=== PATIENT | male | born 1960 | race Two or more races ===

== ENCOUNTER 2017-04-25 08:23 | Observation (INO) | payer OTHER ==
[~2017-04-25] VITALS: Ht 180.3 cm; Wt 93.0 kg
[~2017-04-25 08:23] MED LIST: BETIMOL5 M1; DUREZOL5 ML; GLIMEPIRIDE2 MG PO; METFORMIN HCL500 MG PO; SIMVASTATIN40 MG PO
[2017-04-25] MEDS ORDERED: LEVOTHYROXINE100 MC1 PO (08:36)
[2017-04-25] MEDS ORDERED: SODIUM CHLORIDE 0.9% 1000ML 1,000 ML IV STA (08:38)
[2017-04-25] MEDS ORDERED: PANTOPRAZOLE 40 MG 10ML VIAL IV STA (08:38)
[2017-04-25 09:28] LABS: INR 0.89; PARTIAL THROMBOPLASTIN TIME 25.2 seconds (23.8-35.5); PROTHROMBIN TIME 12.5 seconds (11.9-14.5)
[2017-04-25 09:38] LABS: ALBUMIN 3.8 g/dL (3.5-5.0); ANION GAP 10.8 mmol/L (8-16); BASOPHILS % 0.4 % (0.0-1.0); CALCIUM 9.4 mg/dL (8.4-10.2); CREATININE, SERUM 1.25 mg/dL (0.72-1.25); EOSINOPHILS # (AUTO) 0.2 (0.0-0.4); EOSINOPHILS % 2.4 % (0.0-6.0); HEMATOCRIT 37.8 % (38.2-49.6); HEMOGLOBIN 12.8 g/dL (14.0-18.0); LYMPHOCYTES # (AUTO) 1.8 (1.0-3.2); LYMPHOCYTES % 24.4 % (18.0-39.1); MEAN CORPUSCULAR HGB CONC 33.9 g/dL (31-35); MEAN CORPUSCULAR VOLUME 85.5 fL (81-99); MONOCYTES # (AUTO) 0.5 (0.2-0.8); NEUTROPHILS # (AUTO) 4.7 (2.1-6.9); NEUTROPHILS % 65.4 % (38.7-80.0); PLATELET COUNT 265 x10e3/uL (140-360); POTASSIUM 3.8 mmol/L (3.5-5.1); RED BLOOD COUNT 4.42 x10e6/uL (4.3-5.7); RED CELL DISTRIBUTION WIDTH 13.8 % (11.7-14.4)
[2017-04-25] MEDS: SODIUM CHLORIDE FLUSH 10 ML SYR INJ PRN ×2 (10:30→20:13)
[2017-04-25] MEDS: SODIUM CHLORIDE 0.9% 1000ML 1,000 ML IV SCH ×3 (12:02→20:12)
[2017-04-25 14:49] LABS: BASOPHILS % 0.4 % (0.0-1.0); EOSINOPHILS # (AUTO) 0.2 (0.0-0.4); HEMATOCRIT 35.7 % (38.2-49.6); LYMPHOCYTES # (AUTO) 2.7 (1.0-3.2); LYMPHOCYTES % 32.3 % (18.0-39.1); MEAN CORPUSCULAR HEMOGLOBIN 29.1 pg (28-32); MEAN CORPUSCULAR HGB CONC 33.6 g/dL (31-35); MEAN CORPUSCULAR VOLUME 86.7 fL (81-99); MONOCYTES # (AUTO) 0.5 (0.2-0.8); MONOCYTES % 6.5 % (4.4-11.3); NEUTROPHILS # (AUTO) 4.8 (2.1-6.9); NEUTROPHILS % 58.6 % (38.7-80.0); PLATELET COUNT 239 x10e3/uL (140-360); RED BLOOD COUNT 4.12 x10e6/uL (4.3-5.7); RED CELL DISTRIBUTION WIDTH 13.9 % (11.7-14.4)
[2017-04-25 17:48] VITALS: BP 132/87
[2017-04-25 18:00] VITALS: BP 132/87
[2017-04-25 20:00] VITALS: BP_SYST 132; BP_SYST 156; BP_DIAS 87; BP_DIAS 91
[2017-04-25] MEDS ORDERED: PEG (High)/E-LYTE SOLN 4,000 ML BTL PO NR (20:00)
[2017-04-25] MEDS: PANTOPRAZOLE 40 MG 10ML VIAL IV SCH (20:12)
[2017-04-25 21:20] LABS: BASOPHILS % 0.5 % (0.0-1.0); EOSINOPHILS # (AUTO) 0.3 (0.0-0.4); EOSINOPHILS % 3.4 % (0.0-6.0); HEMATOCRIT 33.1 % (38.2-49.6); HEMOGLOBIN 11.4 g/dL (14.0-18.0); LYMPHOCYTES # (AUTO) 2.5 (1.0-3.2); LYMPHOCYTES % 32.6 % (18.0-39.1); MEAN CORPUSCULAR HEMOGLOBIN 29.6 pg (28-32); MEAN CORPUSCULAR HGB CONC 34.4 g/dL (31-35); MONOCYTES # (AUTO) 0.7 (0.2-0.8); MONOCYTES % 9.4 % (4.4-11.3); NEUTROPHILS # (AUTO) 4.1 (2.1-6.9); NEUTROPHILS % 53.7 % (38.7-80.0); PLATELET COUNT 222 x10e3/uL (140-360); RED BLOOD COUNT 3.85 x10e6/uL (4.3-5.7); RED CELL DISTRIBUTION WIDTH 14.1 % (11.7-14.4)
[2017-04-26 01:06] VITALS: BP 144/81
[2017-04-26 05:20] VITALS: BP 120/70
[2017-04-26 06:09] LABS: BASOPHILS % 0.3 % (0.0-1.0); EOSINOPHILS # (AUTO) 0.3 (0.0-0.4); EOSINOPHILS % 3.9 % (0.0-6.0); HEMOGLOBIN 10.5 g/dL (14.0-18.0); LYMPHOCYTES # (AUTO) 1.9 (1.0-3.2); LYMPHOCYTES % 26.4 % (18.0-39.1); MEAN CORPUSCULAR HEMOGLOBIN 29.2 pg (28-32); MEAN CORPUSCULAR HGB CONC 33.9 g/dL (31-35); MEAN CORPUSCULAR VOLUME 86.1 fL (81-99); MONOCYTES # (AUTO) 0.7 (0.2-0.8); MONOCYTES % 9.6 % (4.4-11.3); NEUTROPHILS # (AUTO) 4.3 (2.1-6.9); NEUTROPHILS % 59.5 % (38.7-80.0); PLATELET COUNT 222 x10e3/uL (140-360)
[2017-04-26 06:28] LABS: ALANINE AMINOTRANSFERASE 26 IU/L (0-55); ALBUMIN 3.1 g/dL (3.5-5.0); ALBUMIN/GLOBULIN RATIO 1.1 (0.8-2.0); ALKALINE PHOSPHATASE 35 IU/L (40-150); BLOOD UREA NITROGEN 9 mg/dL (7-26); BUN/CREATININE RATIO 9 (6-25); CALCIUM 8.4 mg/dL (8.4-10.2); CARBON DIOXIDE 26 mmol/L (22-29); CHLORIDE 107 mmol/L (98-107); CREATININE, SERUM 1.05 mg/dL (0.72-1.25); EST GLOMERULAR FILTRATION RATE > 60 ML/MIN (60-); GLUCOSE 154 mg/dL (74-118); SODIUM 141 mmol/L (136-145)
[2017-04-26 08:12] VITALS: BP 125/68
[2017-04-26] MEDS: PANTOPRAZOLE 40 MG 10ML VIAL IV SCH ×2 (09:20→20:19)
--- NOTE | 2017-04-26 11:10 | History and Physical ---
The patient came in with GI bleed. HISTORY OF PRESENT ILLNESS: This is a 57-year-old gentleman with a history of type 2 diabetes, hyperlipidemia, hypertension, and hypothyroidism. Was in his usual good state of health until the patient had been working on the day prior to admission. The patient had rectal bleeding, which filled up the commode according to him. Almost made him pass out. The patient let it pass. When he went home, he explained this to his , and the said he had to come to his primary care physician. Was seen by nurse practitioner and then sent over to the emergency room for rectal bleeding. The patient came into the emergency room and had 1more episode of rectal bleeding. This morning the patient had another episode of rectal bleeding. PAST SURGICAL HISTORY: History of right eye surgery. SOCIAL HISTORY: No ETOH and no drug abuse. No tobacco. PAST MEDICAL HISTORY: History of hypertension, history of diabetes, history of hyperlipidemia, and history of hypothyroidism. REVIEW OF SYSTEMS: Negative for chest pain or shortness of breath. No palpitations. No nausea, vomiting. Possible diarrhea later. No constipation. Positive for rectal bleeding. No diplopia. No blurry vision. MEDICATIONS: That he takes at home are: 1. Glimepiride 2 mg. 2. Levothyroxine 100 mcg. 3. Metformin 500 mg. 4. Simvastatin 40 mg. 5. Timolol 5 mL for his eyes. PHYSICAL EXAMINATION GENERAL: Patient is alert and oriented times 3 and in no acute distress. VITAL SIGNS: Temperature is 98.8, pulse 92, respiratory rate 18, blood pressure 120/70. HEENT: Normocephalic and atraumatic. There is no pallor present. No icterus present. CV: S1 and S2 normal. Regular rate and rhythm. ABDOMEN: Nontender and nondistended. EXTREMITIES: No clubbing. No cyanosis. No edema. LAB VALUES: Shows hemoglobin is 12.8. Repeat are 12 and 11.4 and 10.5. The patient is on IV fluids. IMPRESSION 1. Probable hemodilution. 2. Hypertension. 3. Hyperlipidemia. 4. Hypothyroidism. PLAN: Do a colonoscopy today. The patient will be scheduled for that today with Dr. Gordo Felix. After this, the patient can be discharged home if it is a diverticular bleed. Further recommendations according to plan. FINAL DIAGNOSES 1. Acute gastrointestinal bleed. 2. Hypertension. 3. History of diverticulosis. Job#: [id number] RI
[2017-04-26 12:02] VITALS: BP 128/74
[2017-04-26 12:31] LABS: BASOPHILS % 0.2 % (0.0-1.0); EOSINOPHILS # (AUTO) 0.3 (0.0-0.4); EOSINOPHILS % 4.3 % (0.0-6.0); HEMATOCRIT 30.6 % (38.2-49.6); HEMOGLOBIN 10.5 g/dL (14.0-18.0); LYMPHOCYTES # (AUTO) 1.7 (1.0-3.2); LYMPHOCYTES % 28.4 % (18.0-39.1); MEAN CORPUSCULAR HEMOGLOBIN 29.3 pg (28-32); MEAN CORPUSCULAR HGB CONC 34.3 g/dL (31-35); MEAN CORPUSCULAR VOLUME 85.5 fL (81-99); MONOCYTES # (AUTO) 0.5 (0.2-0.8); MONOCYTES % 8.9 % (4.4-11.3); NEUTROPHILS # (AUTO) 3.5 (2.1-6.9); NEUTROPHILS % 57.9 % (38.7-80.0); PLATELET COUNT 204 x10e3/uL (140-360); RED BLOOD COUNT 3.58 x10e6/uL (4.3-5.7); RED CELL DISTRIBUTION WIDTH 14.1 % (11.7-14.4)
[2017-04-26] MEDS: SODIUM CHLORIDE 0.9% 1000ML 1,000 ML IV SCH ×2 (13:05→20:19)
--- NOTE | 2017-04-26 15:26 | Operative Report ---
DATE OF PROCEDURE: April 26, 2017 REFERRING PHYSICIAN: Dr. Salbador Campbell and Dr. Elyssa Ge. PROCEDURE PERFORMED: Colonoscopy and polypectomy. INDICATIONS FOR COLONOSCOPY: Rectal bleeding. MEDICATION: Patient was done under MAC. Please see anesthesiologist's note. PROCEDURE: With the patient in the left lateral decubitus position, the flexible fiberoptic Olympus colonoscope was inserted into the rectum with ease and advanced all the way to the cecum. It was then withdrawn slowly. Mucosa overlying the cecum grossly appeared to be within normal limits. Diverticular disease was noted throughout. There was no active bleeding. Two polyps were snared and hot biopsied from the ascending colon. Other than for diverticular disease, the transverse, descending and sigmoid appeared to be within normal limits. The rectum was within normal limits. The scope was then retroflexed into the distal rectum and moderate-sized internal hemorrhoids were noted, none of which was actively bleeding. The scope was then straightened out. It was subsequently withdrawn. Patient tolerated the procedure well. IMPRESSION: 1. Pandiverticulosis. 2. Ascending colon polyps times 2, snared and hot biopsied. 3. Internal hemorrhoids, none actively bleeding. PLAN: Follow up histology. Initiate GI soft diet. Patient will need a followup colonoscopy in 3 years. Job#: [id number] EV cc:MD ELYSSA MEAD MD
[2017-04-26 16:35] VITALS: BP 127/78
[2017-04-26 18:55] VITALS: BP 126/70
[2017-04-26 19:22] LABS: BASOPHILS % 0.5 % (0.0-1.0); EOSINOPHILS # (AUTO) 0.2 (0.0-0.4); EOSINOPHILS % 3.4 % (0.0-6.0); HEMATOCRIT 31.3 % (38.2-49.6); HEMOGLOBIN 10.5 g/dL (14.0-18.0); LYMPHOCYTES # (AUTO) 1.8 (1.0-3.2); LYMPHOCYTES % 27.9 % (18.0-39.1); MEAN CORPUSCULAR HEMOGLOBIN 29.2 pg (28-32); MEAN CORPUSCULAR HGB CONC 33.5 g/dL (31-35); MEAN CORPUSCULAR VOLUME 87.2 fL (81-99); MONOCYTES # (AUTO) 0.5 (0.2-0.8); MONOCYTES % 7.7 % (4.4-11.3); NEUTROPHILS # (AUTO) 3.9 (2.1-6.9); NEUTROPHILS % 60.3 % (38.7-80.0); PLATELET COUNT 216 x10e3/uL (140-360); RED BLOOD COUNT 3.59 x10e6/uL (4.3-5.7)
[2017-04-26] MEDS ORDERED: MIDAZOLAM HCL 2 MG/2 ML VIAL ONE (20:05)
[2017-04-26] MEDS ORDERED: FENTANYL CITRATE/PF 100MCG/2 ML INJ ONE (20:05)
[2017-04-26] MEDS ORDERED: LIDOCAINE HCL 2% LOCAL INJ 5 ML SDV VIAL INJ ONE (20:28)
[2017-04-26] MEDS ORDERED: PROPOFOL IV EMULSION 10 MG/ML 50 ML VIAL ONE (20:28)
[2017-04-27 00:35] VITALS: BP 128/67
[2017-04-27 00:42] LABS: BASOPHILS % 0.3 % (0.0-1.0); EOSINOPHILS # (AUTO) 0.3 (0.0-0.4); EOSINOPHILS % 2.9 % (0.0-6.0); HEMATOCRIT 29.2 % (38.2-49.6); LYMPHOCYTES # (AUTO) 2.2 (1.0-3.2); LYMPHOCYTES % 25.1 % (18.0-39.1); MEAN CORPUSCULAR HEMOGLOBIN 29.7 pg (28-32); MEAN CORPUSCULAR HGB CONC 34.2 g/dL (31-35); MEAN CORPUSCULAR VOLUME 86.6 fL (81-99); MONOCYTES # (AUTO) 0.7 (0.2-0.8); MONOCYTES % 7.9 % (4.4-11.3); NEUTROPHILS # (AUTO) 5.5 (2.1-6.9); NEUTROPHILS % 63.6 % (38.7-80.0); PLATELET COUNT 205 x10e3/uL (140-360); RED BLOOD COUNT 3.37 x10e6/uL (4.3-5.7); RED CELL DISTRIBUTION WIDTH 14.1 % (11.7-14.4)
[2017-04-27 03:25] VITALS: BP 126/70
[2017-04-27] MEDS: SODIUM CHLORIDE 0.9% 1000ML 1,000 ML IV SCH (03:50)
[2017-04-27 05:00] VITALS: BP 132/72
[2017-04-27 06:20] LABS: BASOPHILS % 0.3 % (0.0-1.0); EOSINOPHILS # (AUTO) 0.3 (0.0-0.4); EOSINOPHILS % 2.4 % (0.0-6.0); HEMATOCRIT 29.2 % (38.2-49.6); HEMOGLOBIN 9.8 g/dL (14.0-18.0); LYMPHOCYTES # (AUTO) 1.9 (1.0-3.2); LYMPHOCYTES % 17.1 % (18.0-39.1); MEAN CORPUSCULAR HEMOGLOBIN 29.1 pg (28-32); MEAN CORPUSCULAR HGB CONC 33.6 g/dL (31-35); MEAN CORPUSCULAR VOLUME 86.6 fL (81-99); MONOCYTES # (AUTO) 0.9 (0.2-0.8); MONOCYTES % 7.9 % (4.4-11.3); NEUTROPHILS % 71.9 % (38.7-80.0); PLATELET COUNT 194 x10e3/uL (140-360); RED BLOOD COUNT 3.37 x10e6/uL (4.3-5.7)
[2017-04-27 07:44] VITALS: BP 133/70
--- NOTE | 2017-06-15 16:02 | Discharge Summary ---
This patient came into the hospital for a GI bleed, was started on his home medications, glimepiride, levothyroxine, metformin, simvastatin and atenolol. The patient also had GI consult done with Dr. Gordo Felix. Patient scoped by Dr. Gordo Felix, was found to have pandiverticulosis, no active bleeding seen. The patient was stable enough. Hemoglobin and hematocrit were monitored, and the patient was feeling much better and the patient's hemoglobin was about 10 and 29.2 on discharge. The patient discharged in a stable condition. Increase in fiber was recommended and also strict ER warnings were given, too. The patient's hemoglobin and hematocrit and his blood pressure were normal on discharge. For further information, look in the chart. FINAL DIAGNOSES 1. Rectal bleeding. 2. Pandiverticulosis. VENU PATTERSON MD Job#: [id number] EV
== END 2017-04-27 09:15 | disposition home or self-care (01) ==
LOC: ER 08:23 → ERHOLD 12:34 → IMCU 16:54
PROVIDERS: ADMIT Family Medicine; ATTEND Family Medicine
DX: K92.2 Gastrointestinal hemorrhage, unspecified (principal); D12.2 Benign neoplasm of ascending colon; K57.30 Diverticulosis of large intestine without perforation or abscess without bleeding; K64.8 Other hemorrhoids; E11.9 Type 2 diabetes mellitus without complications; I10 Essential (primary) hypertension; E03.9 Hypothyroidism, unspecified; E78.5 Hyperlipidemia, unspecified
CPT/HCPCS: 36415 ×3; 45385; 80053 ×2; 83690; 85014 ×3; 85018 ×3; 85025 ×3; 85610; 85730; 88305; 99284; G0378 ×3; J2001; J2250; J7030 ×3; 45378

== ENCOUNTER → 2022-09-10 | Day surgery (SDC) | payer OTHER ==
[~2022-09-10] MED LIST changes: -BETIMOL5 M1; +BETIMOL5 M1 OP; -DUREZOL5 ML; +DUREZOL5 ML OP; +FLOMAX0.4 MG PO; +HYOSCYAMINE SULFATE 0.5 MG/ML INJ ONE; +LACTATED RINGER'S 1,000 ML BAG IV ONE; +LEVOTHYROXINE100 MC1 PO; +LIDOCAINE HCL 2% LOCAL INJ 5 ML SDV VIAL INJ ONE; +LOSARTAN POTASS25 MG PO; +METOCLOPRAMIDE HCL 10 MG/2ML VIAL ONE; +OZEMPIC0.25 MG/0. SC; +POVIDONE IODINE 0.05% 0.05 % ML PO ONE; +PROPOFOL IV EMULSION 10 MG/ML 20 ML VIAL ONE; +VITAMIN D250 MCG PO
[2022-09-10 11:45] VITALS: BP 115/72; PULSE 94; RESP 17; O2SAT 95
== END | disposition home or self-care (01) ==
LOC: OR 07:56
PROVIDERS: ATTEND Internal Medicine Gastroenterology
DX: Z09 Encounter for follow-up examination after completed treatment for conditions other than malignant neoplasm (principal); Z86.010 Personal history of colon polyps; K57.30 Diverticulosis of large intestine without perforation or abscess without bleeding; K64.8 Other hemorrhoids; E11.9 Type 2 diabetes mellitus without complications; E78.5 Hyperlipidemia, unspecified; R06.83 Snoring; Z88.6 Allergy status to analgesic agent; Z01.810 Encounter for preprocedural cardiovascular examination; Z79.84 Long term (current) use of oral hypoglycemic drugs; Z79.85 Long-term (current) use of injectable non-insulin antidiabetic drugs; Z79.899 Other long term (current) drug therapy
CPT/HCPCS: 36415; 45378; 82948; 93005; J1980; J2001; J2704; J2765; J7121